=== PATIENT | female | born 1995 | race Caucasian/White ===

== ENCOUNTER 2023-11-11 22:50 | Emergency (ER) | payer MEDICAID ==
[~2023-11-11] VITALS: Ht 160 cm; Wt 91.0 kg
[2023-11-11 22:57] VITALS: O2SAT 98
[2023-11-11] MEDS ORDERED: ACET-2708 MT (23:58)
[2023-11-12] MEDS: ACETAMINOPHEN 325MG TABLET PO ONE (01:33)
[2023-11-12] MEDS ORDERED: ONDA4TAB11 PO (02:25)
[2023-11-12] MEDS ORDERED: IBUP-2029 MT (02:25)
[2023-11-12] MEDS: ONDANSETRON HCL 4MG/2ML INJ IV ONE (02:33)
[2023-11-12 03:26] VITALS: BP 132/88; PULSE 99; RESP 18; TEMP 98.4
== END 2023-11-12 03:29 | disposition home or self-care (01) ==
LOC: ER 22:50
DX: S06.0X0A Concussion without loss of consciousness, initial encounter (principal); S00.03XA Contusion of scalp, initial encounter; J45.909 Unspecified asthma, uncomplicated; W18.39XA Other fall on same level, initial encounter; Y93.89 Activity, other specified; Y92.89 Other specified places as the place of occurrence of the external cause; Y99.8 Other external cause status
CPT/HCPCS: 99283; J2405; Z7610